=== PATIENT | female | born 1960 | race Caucasian/White ===

== ENCOUNTER → 2017-07-16 | Day surgery (SDC) | payer OTHER ==
--- NOTE | 2017-07-09 16:51 | MH ---
cc: SERENITY CONTRERAS MD DATE OF ADMISSION 07/16/2017 PRINCIPAL DIAGNOSIS Lobular neoplasia of the left breast. ATTENDING PHYSICIAN Serenity Contreras MD HISTORY OF PRESENT ILLNESS The patient is a 56-year-old female who had a screening mammogram on May 06, 2017 at [facility] which demonstrated dense breasts and asymmetry in the upper left breast. A diagnostic left breast mammogram with tomosynthesis on May 13 as well as left breast ultrasound demonstrated a Bi-RADS five mass in the 12 o'clock location 5 cm from the nipple which was 10 x 5 x 8 mm and appeared to involve the pectoralis muscle. Ultrasound-guided core biopsy was performed on May 25 and this demonstrated lobular neoplasia which was multifocal. She has no prior history of breast disease. She now presents for needle-localized excision. PAST MEDICAL HISTORY 1. Peptic ulcer disease 2. Uterine fibroids. PAST SURGICAL HISTORY Tonsillectomy in 1975. She had been taking hormone replacement but stopped one month ago. ALLERGIES PENICILLIN - ASSOCIATED WITH A RASH REPRODUCTIVE HISTORY G2, . Menarche age 14, child age 28, menopause age 53. She was taking hormone replacement until one month ago. FAMILY HISTORY Noncontributory. REVIEW OF SYSTEMS 12-point review of systems was noncontributory. PHYSICAL EXAMINATION VITAL SIGNS: She is 4 feet 11 inches and weighed 97 pounds with a BMI of 19.6. Blood pressure is 110/66, temperature 97, heart rate 76, respirations 16. HEENT: Unremarkable NECK: Supple with no adenopathy or thyromegaly. CHEST: Clear throughout. CARDIAC: Unremarkable. BREASTS: Exam revealed fibrocystic changes and there was dimpling with an area of induration in the outer left breast. This was at 12 o'clock 5 cm from the nipple near the site of her prior biopsy. ABDOMEN: Soft and nontender with no masses. The remainder of her exam was unremarkable. IMPRESSION Ms. Peters has lobular neoplasia and features quite concerning for malignancy. I have recommended breast MRI which was consistent with the known area of neoplasia as well as needle localized excision of the area. I will also discuss the role of axillary sampling with her, since her risk of associated malignancy is at least 20%. MD WILIAN Zendejas/ /4:20 PM /4:36 PM
[~2017-07-16] MED LIST: BUPIVACAINE HCL PF 0.5% 10 ML VIAL ONE; CLINDAMYCIN PHOS 900 MG/6 ML VIAL ONE; KETOROLAC TROMETHAMINE 30 MG/ML (IVP) VIAL IV PUSH ONE; LACTATED RINGER'S 1000 ML INJ 1,000 ML ONE; MIDAZOLAM HCL 2 MG/2 ML VIAL ONE; ONDANSETRON HCL 4 MG/2 ML VIAL IV PUSH ONE; PROPOFOL 200 MG/20 ML AMP IV ONE
--- NOTE | 2017-07-16 12:53 | TN ---
cc: SERENITY CONTRERAS DATE OF SURGERY 07/16/2017 PREOPERATIVE DIAGNOSIS Lobular neoplasia of the left breast. PROCEDURE PERFORMED Left breast needle-localized lumpectomy. POSTOPERATIVE DIAGNOSIS Lobular neoplasia of the left breast. SURGEON Serenity Contreras MD ANESTHESIA General via LMA device. INDICATION The patient is a 56-year-old female noted to have a somewhat poorly defined density in the upper outer left breast. Ultrasound-guided biopsy demonstrated lobular neoplasia but the lesion had been called BI-RADS five. She now presents for a needle-localized at re-excision of the area. FINDINGS AT THE TIME OF SURGERY Very dense breast tissue was identified with no gross evidence of a discrete mass. PROCEDURE PERFORMED After informed consent was obtained and site verification was performed, the patient was brought to the radiology suite where she underwent needle localization of her prior biopsy site in the left breast at 12 o'clock 5 cm from the nipple. She was given a single dose of IV clindamycin due to penicillin allergy and sequential compression hose were placed. The left breast was prepped and draped in a sterile fashion. A periareolar skin incision was anesthetized with 0.5% Marcaine plain and incised sharply. Further sharp dissection was performed until the wire entry point through the skin was identified and secured with a hemostat. The wire was cut off at the skin with pin cutters and a 2-0 silk transfixion suture was placed at the wire entry point into the breast tissue. Sharp and electrocautery dissection was then performed circumferentially around the wire and the specimen was oriented with two sutures laterally, one long suture anteriorly, and one short suture superiorly. The specimen was sent to radiology and the density was identified as well as an intact wire. It was then sent to permanent pathology evaluation. Hemostasis was easily obtained with electrocautery and inspection of the specimen did demonstrate that the anterior margin appeared close. This was sharply reexcised with a stitch on the new margin and the anterior margin was sent separately as a permanent specimen. The lumpectomy specimen was noted to have two sutures laterally, one long suture anteriorly, and one short suture superiorly. Once hemostasis was obtained with electrocautery, the wound was closed using interrupted 3-0 Vicryl subcutaneous sutures and a 4-0 Monocryl subcuticular suture. Steri-Strips and sterile dressings were applied. The patient tolerated the procedure well with an estimated blood loss at 20 cc and she was extubated in the operating room and brought to the recovery room in good condition. It should be noted that the posterior margin of resection was the pectoralis muscle. MD WILIAN Zendejas/GUY /12:21 PM /12:36 PM
== END | disposition home or self-care (01) ==
LOC: ESDC 07:03
PROVIDERS: ATTEND Surgery
DX: D05.02 Lobular carcinoma in situ of left breast (principal)
CPT/HCPCS: 00400; 19125; 88307; J1885; J2250; J2405; J3010; J7120; 88361

== ENCOUNTER → 2017-08-11 | Day surgery (SDC) | payer OTHER ==
[~2017-08-11] MED LIST changes: +BUPIVACAINE HCL PF 0.5% 10 ML VIAL INFIL ONE; -BUPIVACAINE HCL PF 0.5% 10 ML VIAL ONE; +ISOSULFAN BLUE 50 MG/5 ML VIAL SQ ONE; +KETOROLAC TROMETHAMINE 30 MG/ML (IVP) VIAL ONE; +SODIUM CHLOR 0.9% 250 ML BAG IV ONE; +SODIUM CHLORIDE 0.9% INJ 10 ML ONE
--- NOTE | 2017-08-11 13:58 | TN ---
cc: SERENITY CONTRERAS M.D. DATE OF SURGERY: 08/11/2017 PREOPERATIVE DIAGNOSIS Invasive lobular carcinoma of the left breast. POSTOPERATIVE DIAGNOSIS Invasive lobular carcinoma of the left breast. PROCEDURE PERFORMED Left axillary sentinel lymph node biopsy. SURGEON Serenity Contreras. ANESTHESIA General via LMA device. INDICATION The patient is a 56-year-old female who required a recent needle-localized lumpectomy for atypia. Final pathology demonstrated invasive lobular carcinoma with negative resection margins. She now presents for sentinel node biopsy to complete staging. FINDINGS At the time of surgery six sentinel lymph nodes were identified. #1 had a count of 8856. #2 had a count of 6512. #3 had a count of 5481. #4 had a count of 2063. #5 had a count of 917. #6 had a count of 277. Touch-prep analysis was not performed. PROCEDURE PERFORMED After informed consent was obtained and site verification was performed, the patient was brought to the radiology suite where she underwent peritumoral radionuclide injection. She was then brought to the major operating room where she underwent general anesthesia via an LMA device. She was given a single dose of IV clindamycin due to penicillin allergy and sequential compression hose were placed. The left axillary area was anesthetized with 0.5% Marcaine and the left axilla and breast were prepped and draped in sterile fashion. An incision was created at the inferior aspect of the left axillary hairline and both sharp and electrocautery dissection were performed until the clavipectoral fascia was divided and the level I axilla was entered. Six level I sentinel lymph nodes were identified and the highest was just anterior to the axillary vein. Each node was circumferentially dissected free from surrounding structures using the Harmonic scalpel with the counts as noted. No further palpable adenopathy or significant radioactive count was identified and good hemostasis was noted. The lymph nodes were sent separate for permanent pathologic evaluation. The wound was closed using interrupted 3-0 Vicryl subcutaneous sutures and 4-0 Monocryl subcuticular suture. Steri-Strips and a sterile dressing were applied. The patient tolerated the procedure well with an estimated blood loss of 50 cc. She was extubated in the operating room and brought to the recovery room in good condition. MD WILIAN Zendejas/GABRIELA /1:36 PM /1:48 PM
== END | disposition home or self-care (01) ==
LOC: ESDC 09:02
PROVIDERS: ATTEND Surgery
DX: C50.912 Malignant neoplasm of unspecified site of left female breast (principal)
CPT/HCPCS: 01610; 38525; 38792; 88307; J1885; J2250; J2405; J3010; J7050; J7120; Q9968